=== PATIENT | female | born 1960 | race Caucasian/White ===

== ENCOUNTER 2016-11-08 12:13 | Emergency (ER) | payer OTHER ==
--- NOTE | ~2016-11-08 | ER ---
PATIENT'S NAME: BRIDGETT AGGARWAL [facility] AGE: 56 Y [address] ROOM: [place] [id number] LOCATION: [facility] ADMIT DATE: 11/08/2016 ER/Outpatient Report DISCHARGE DATE: 11/08/2016 FAMILY PHYSICIAN: Elbert Gaviria MD ATTENDING PHYSICIAN: Asif Lai Time of Patient's Arrival: 1230 hours. Time of Patient's Evaluation: 1250 hours. CHIEF COMPLAINT: Right facial swelling. HISTORY OF PRESENT ILLNESS: This is a 56-year-old female who presents to the ER with some right-sided facial swelling that she noticed just today while she was eating. She states this occurred during lunch approximately 45 minutes prior to arrival. She states last night she noticed some right-sided neck discomfort and she thought it was just due to some recent travel, but then while she was thinking of it, she has also developed Charley horses in her right lower extremity over the past 3 days when she was in [place] as well. She states she has had no shortness of breath, no cough, no troubles breathing, no dental pain. She states she has noticed the pain in her right jaw or face when she opens and closes her cheek. She states that she has been placing ice to the area, which has been helping her. She denies any fever or chills. No skin rashes. No other problems at this time. ALLERGIES: CLINDAMYCIN, PENICILLIN, BACTRIM, AND OMNICEF. MEDICATIONS: Please see medication list in nurse's notes. PAST MEDICAL HISTORY: Hypertension. PAST SURGERIES: Left shoulder manipulation, tonsillectomy, cholecystectomy, and hysterectomy. SOCIAL HISTORY: She has quit smoking 11 years ago. Drinks occasional wine. REVIEW OF SYSTEMS: All systems reviewed were negative with the exception of those discussed in the HPI. PATIENT'S NAME: BRIDGETT AGGARWAL [facility] AGE: 56 Y [address] ROOM: [place] [id number] LOCATION: [facility] ADMIT DATE: 11/08/2016 ER/Outpatient Report DISCHARGE DATE: 11/08/2016 FAMILY PHYSICIAN: Elbert Gaviria MD ATTENDING PHYSICIAN: Asif Lai PHYSICAL EXAMINATION: VITAL SIGNS: Height 5 feet 6 inches stated, weight 58.9 kg taken, blood pressure is 106/66, pulse 96, respirations 16, temperature 98.3 degrees tympanically, and saturations 98% on room air. [place] Coma Score is 15. GENERAL: Alert, calm, well-developed, 56-year-old, in no acute distress. HEENT: Head: Normocephalic. Eyes: Pupils are equal and reactive to light. Ears: TMs display good light reflexes bilaterally. Auditory canals clear. Nose: Turbinates pink with no drainage. Throat: No exudates or erythema. She does have some dental fillings noted to her right upper and lower molars. She has no tenderness into the gumline. I cannot palpate any firmness underneath the tongue or to the inside of the facial cheek. She does have some swelling noted to the right face, just in front of her ear, it is quite tender to palpation. There is no erythema and no rash to the area. LUNGS: Clear to auscultation bilaterally. No wheezes or crackles. NECK: Supple. No lymphadenopathy. HEART: Regular rate and rhythm. SKIN: Warm, dry, and intact. MUSCULOSKELETAL: She has full range of motion of all limbs. She has no calf tenderness with palpation. She is able to flex and extend her lower extremities with no difficulties. I did not appreciate any erythema to her skin. LABORATORY DATA: CBC: White count is 6.9, hemoglobin is 13.3, and platelets 257. CMS: Potassium 3.6, glucose is 104, otherwise unremarkable. [place] was negative. IMPRESSION: Right facial swelling, most likely due to blocked salivary gland. ASSESSMENT AND PLAN: The patient did not require anything for pain while she was here in the emergency room. Since she was afebrile and her blood work was stable, we will go with a more conservative route with warm compresses to the face and also advised her to suck on some sour candy. She needs to take Tylenol and ibuprofen as needed for her pain. She may massage her jaw or her face, and she needs to follow up with her primary care physician if she does not improve. The patient understands and agrees with care. KAREN HARRIS DO ACJ/modl PATIENT'S NAME: BRIDGETT AGGARWAL [facility] AGE: 56 Y [address] ROOM: [place] [id number] LOCATION: [facility] ADMIT DATE: 11/08/2016 ER/Outpatient Report DISCHARGE DATE: 11/08/2016 FAMILY PHYSICIAN: Elbert Gaviria MD ATTENDING PHYSICIAN: Asif Lai /[id number] d: 11/09/16 0254 t: 11/14/16 0920, OUTPATIENT REPORT
[2016-11-08 13:19] LABS: BASOPHIL % 0.4 %; EOSINOPHIL % 0.6 %; HEMATOCRIT 40.1 % (33.0-46.0); HEMOGLOBIN 13.3 g/dL (10.0-15.0); IMMATURE GRANULOCYTE % 0.4 %; LYMPHOCYTE # 1.7 K/uL (0.8-4.0); LYMPHOCYTE % 24.1 %; MCH 30.2 pg (27.0-34.0); MCHC 33.2 gm/dL (32.0-36.5); MCV 91.1 fl (83.0-98.0); MONOCYTE # 0.8 K/uL (0.0-1.0); MPV 9.5 fl (9.4-12.4); NEUTROPHIL # (ANC) 4.3 K/uL (1.8-7.8); NEUTROPHIL % 62.5 %; NRBC % 0 /100WBC (0-0.00); PLATELET COUNT 257 K/uL (150-450); RDW-CV 13.1 % (11.9-14.6); WBC 6.9 K/uL (4.0-11.0)
[2016-11-08 13:44] LABS: ALBUMIN 4.1 gm/dL (3.5-5.0); ALK PHOS 63 IU/L (33-138); ALT 65 IU/L (12-78); ANION GAP 10.6 (10.0-19.0); AST 30 IU/L (10-40); BLOOD UREA NITROGEN 18 mg/dL (6-24); CALCIUM 9.2 mg/dL (8.5-10.5); CHLORIDE 100 mMol/L (96-110); CO2 30 mMol/L (22-32); CREATININE 0.6 mg/dL (0.5-1.1); ESTIMATED GFR (MDRD EQUATION) > 60; POTASSIUM 3.6 mMol/L (3.7-5.1); SODIUM 137 mMol/L (135-145); TOTAL BILIRUBIN 0.5 mg/dL (0.0-1.5); TOTAL PROTEIN 7.1 g/dL (6.0-8.4)
== END 2016-11-08 14:00 | disposition disaster alternative care site (69) ==
LOC: GMED 12:13
PROVIDERS: Physician Assistant Medical
DX: R22.9 Localized swelling, mass and lump, unspecified (principal); I10 Essential (primary) hypertension; Z88.0 Allergy status to penicillin; Z88.1 Allergy status to other antibiotic agents; Z90.49 Acquired absence of other specified parts of digestive tract; Z87.891 Personal history of nicotine dependence; Z90.89 Acquired absence of other organs; Z79.899 Other long term (current) drug therapy; Z79.891 Long term (current) use of opiate analgesic